=== PATIENT | male | born 1970 | race American Indian/Alaskan Native ===

== ENCOUNTER 2016-09-11 20:03 | Inpatient (IN) | payer OTHER ==
[2016-09-11 22:09] LABS: Basophils % (Auto) 1.3 % (0.0-1.8); Hematocrit 28.3 % (35.5-45.6); Hemoglobin 9.8 gm/dl (11.8-15.2); Mean Corpuscular HGB Conc 35 % (32-34); Mean Corpuscular Hemoglobin 28 pg (28-32); Mean Corpuscular Volume 81 fl (84-94); Platelet Count 195 K/mm3 (140-440); Red Blood Count 3.51 M/mm3 (3.65-5.03); Red Cell Distribution Width 12.7 % (13.2-15.2); White Blood Count 6.5 K/mm3 (4.5-11.0)
[2016-09-11 22:20] LABS: INR 1.09 (0.87-1.13)
[2016-09-11 22:21] LABS: Partial Thromboplastin Time 32.3 Sec. (24.2-36.6)
[2016-09-11 22:26] LABS: BUN/Creatinine Ratio 8.33; Calcium 9.3 mg/dL (8.4-10.2); Chloride 100.6 mmol/L (98-107); Potassium 4.5 mmol/L (3.6-5.0)
--- NOTE | 2016-09-12 06:26 | Emergency Department Report ---
ED General Adult HPI - General Chief complaint: Medical Clearance Stated complaint: SICK/DIALYSIS Time Seen by Provider: 09/12/16 06:25 Source: patient Mode of arrival: Wheelchair Limitations: No Limitations - History of Present Illness Initial comments: Patient states that he moved to this area approximately one week ago without any provisions for dialysis. He has a Vas-Cath and has been dialyzed for one month. Does not have a physician. Complains of some generalized weakness and vomiting times once. He is not complaining of any active dyspnea. He does not complain of any abdominal pain. He also states that he is out of his blood pressure medicine. -: week(s) Consistency: intermittent Improves with: none, immobilization Associated Symptoms: denies other symptoms - Related Data Allergies Allergy/AdvReac Type Severity Reaction Status Date / Time No Known Allergies Allergy Unverified 09/11/16 21:31 ED Review of Systems ROS: Stated complaint: SICK/DIALYSIS Other details as noted in HPI Constitutional: weakness Eyes: denies: eye pain, eye discharge, vision change ENT: denies: ear pain, throat pain Respiratory: denies: cough, shortness of breath, wheezing Cardiovascular: denies: chest pain, palpitations Endocrine: no symptoms reported Gastrointestinal: vomiting (once). denies: abdominal pain, nausea, diarrhea Genitourinary: denies: urgency, dysuria Musculoskeletal: denies: back pain, joint swelling, arthralgia Skin: denies: rash, lesions Neurological: denies: headache, weakness, paresthesias Psychiatric: denies: anxiety, depression Hematological/Lymphatic: denies: easy bleeding, easy bruising ED Past Medical Hx - Past Medical History Hx CVA: Yes (L. SIDED WEAKNESS) Hx Renal Disease: Yes - Surgical History Past Surgical History?: No - Social History Smoking Status: Never Smoker Substance Use Type: None ED Physical Exam - General Limitations: No Limitations General appearance: alert, in no apparent distress - Head Head exam: Present: atraumatic, normocephalic - Eye Eye exam: Present: normal appearance. Absent: scleral icterus - ENT ENT exam: Present: normal exam, mucous membranes moist - Neck Neck exam: Present: normal inspection - Respiratory Respiratory exam: Present: normal lung sounds bilaterally, other (vas cath and chest noted). Absent: respiratory distress - Cardiovascular Cardiovascular Exam: Present: regular rate, normal rhythm. Absent: systolic murmur, diastolic murmur, rubs, gallop - GI/Abdominal GI/Abdominal exam: Present: soft, normal bowel sounds. Absent: distended, tenderness, guarding, rebound, rigid - Rectal Rectal exam: Present: deferred - Extremities Exam Extremities exam: Present: normal inspection - Back Exam Back exam: Present: normal inspection - Neurological Exam Neurological exam: Present: alert, oriented X3, CN II-XII intact, motor sensory deficit (mild left hemiparesis) - Psychiatric Psychiatric exam: Present: normal affect, normal mood - Skin Skin exam: Present: warm, dry, intact, normal color. Absent: rash ED Course Vital Signs 09/11/16 09/12/16 09/12/16 21:26 06:19 06:51 Temperature 98.6 F Pulse Rate 70 Respiratory 20 Rate Blood Pressure 170/117 198/113 Blood Pressure [Left] O2 Sat by Pulse 100 98 Oximetry 09/12/16 07:45 Temperature Pulse Rate 65 Respiratory 16 Rate Blood Pressure Blood Pressure 181/106 [Left] O2 Sat by Pulse 100 Oximetry - Reevaluation(s) Reevaluation #1: Discussed with Dr. Mccurdy. The patient was admitted to the hospital service further care and evaluation. 09/12/16 08:27 ED Medical Decision Making - Lab Data Result diagrams: 09/11/16 21:54 09/11/16 21:53 Laboratory Results - last 24 hr 09/11/16 09/11/16 09/11/16 21:48 21:53 21:54 WBC 6.5 RBC 3.51 L Hgb 9.8 L Hct 28.3 L MCV 81 L MCH 28 MCHC 35 H RDW 12.7 L Plt Count 195 Lymph % (Auto) 31.0 [place] % (Auto) 7.6 H Eos % (Auto) 2.0 Baso % (Auto) 1.3 Lymph # 2.0 [place] # 0.5 Eos # 0.1 Baso # 0.1 Seg Neutrophils % 58.1 Seg Neutrophils # 3.8 PT 14.0 INR 1.09 APTT 32.3 Sodium 139 Potassium 4.5 Chloride 100.6 Carbon Dioxide 24 Anion Gap 19 BUN 60 H Creatinine 7.2 H Estimated GFR 8 BUN/Creatinine Ratio 8.33 Glucose 103 H Calcium 9.3 - EKG Data -: EKG Interpreted by Ma EKG shows normal: sinus rhythm, axis, intervals, QRS complexes, ST-T waves Rate: normal - EKG Data Interpretation: no acute changes - Radiology Data interpreted by me: Chest x-ray shows some venous congestion but no significant decompensation. Critical care attestation.: If time is entered above; I have spent that time in minutes in the direct care of this critically ill patient, excluding procedure time. ED Disposition Clinical Impression: End stage renal disease on dialysis, Uncontrolled hypertension Disposition: OP ADMITTED IP TO THIS HOSP Is pt being admited?: Yes Does the pt Need Aspirin: Yes Condition: Stable Instructions: Hypertension (ED) Referrals: PRIMARY CARE, [Primary Care Provider] - 3-5 Days Time of Disposition: 08:27
[2016-09-12] MEDS ORDERED: NORMODYNE IV ONE (06:27)
--- NOTE | 2016-09-12 07:28 | XRay Report ---
AP CHEST: HISTORY: Hypertension No comparison. There is mild cardiomegaly and borderline pulmonary venous congestion. The lungs are clear. No evidence for pneumonia, CHF or pneumothorax. Dual-lumen right IJ venous catheter terminates in the superior right atrium. The bony thorax is grossly intact. IMPRESSION: Mild cardiomegaly and pulmonary venous congestion but no CHF.
[2016-09-12] MEDS ORDERED: DULCOLAX PR PRN (08:09)
[2016-09-12] MEDS ORDERED: BABY ASPIRIN PO ONE (08:27)
[2016-09-12] MEDS ORDERED: NITRO-BID 2% TP ONE (08:28)
--- NOTE | 2016-09-12 08:49 | Admit Criteria Form ---
Admission Criteria Documentation: HYPERTENSION Clinical Indications for Admission to Inpatient Care ( Place "X" for any and all applicable criteria): Admission is indicated for ANY ONE of the following(1)(2)(3)(4): [ ]I. Hypertensive emergency, with evidence of acute and progressing target organ disease as indicated by ANY ONE of the following: [ ]a) Hypertensive encephalopathy (eg, confusion, altered mental status) [ ]b) Cerebral infarction [ ]c) Intracranial hemorrhage [ ]d) Myocardial ischemia or infarction [ ]e) Pulmonary edema [ ]f) Aortic dissection [ ]g) Seizure [ ]h) Acute renal insufficiency [ ]i) Papilledema [ ]j) Microangiopathic hemolytic anemia [ ]II. Adrenergic crisis (eg, severe hypertension due to pheochromocytoma crisis, cocaine or amphetamine intoxication, or clonidine withdrawal) [X ]III. Severe hypertension (SBP greater than 180 mmHg or DBP greater than 110 mmHg or greater than the 95th percentile for age, gender, and height in pediatric patients) that cannot be controlled (eg, to SBP less than 160 mmHg and DBP less than 100 mmHg in adults) by treatment with oral medication in emergency department or observation care Extended stay beyond goal length of stay may be needed for(11)(12)(13): [ ]a) Persistent hypertensive encephalopathy [ ]b) Continuation of pulmonary edema [ ]c) Recurring or persistent severe hypertension [ ]d) Target organ damage (eg, angina, stroke, aortic dissection) [ ]e) Associated renal insufficiency The original [employer] content created by [employer] has been revised. The portions of the content which have been revised are identified through the use of italic text or in bold, and [facility] has neither reviewed nor approved the modified material. All other unmodified content is copyright [facility]. Please see references footnoted in the original [facility] edition 2016 Admission Criteria Met: Yes
[2016-09-12] MEDS ORDERED: BABY ASPIRIN ONE (08:54)
[2016-09-12] MEDS: HEPARIN SUB-Q SCH (10:00)
--- NOTE | 2016-09-12 10:47 | Consultation ---
History of Present Illness - Reason for Consult Consult date: 09/12/16 end stage renal disease, accelerated hypertension - History of Present Illness Patient is a 46 year old AAM with history significant for Hypertension, CVA with left hemiplegia and ESRD on hemodialysis for the past 2 months came to ER with missed hemodialysis. He moved to this area approximately one week ago without any arrangement for hemodialysis. Patient was last dialyzed on 09/04/16 at [place]. He has a right sided tunnel dialysis catheter. Patient complains of some generalized weakness and one episode of vomiting. He also states that he is out of his blood pressure medication. Patient denies any CP, SOb, leg swelling, dizziness, abd pain, fever, chills or syncope. Past History Past Medical History: dialysis, ESRD, hypertension Medications and Allergies Allergies Allergy/AdvReac Type Severity Reaction Status Date / Time No Known Allergies Allergy Unverified 09/11/16 21:31 Active Meds: Active Medications Acetaminophen (Tylenol) 650 mg PO Q4H PRN PRN Reason: Pain MILD(1-3)/Fever >100.5/COOL Bisacodyl (Dulcolax) 10 mg ME QDAY PRN PRN Reason: Constipation unrelieved by MOM Heparin Sodium (Porcine) (Heparin) 5,000 unit SUB-Q Q12HR CHANG Hydralazine HCl (Apresoline) 10 mg IV Q4HR PRN PRN Reason: Hypertension Ondansetron HCl (Zofran) 4 mg IV Q8H PRN PRN Reason: Nausea And Vomiting Review of Systems Constitutional: weakness, no weight loss, no weight gain, no fever, no chills, no anorexia Ears, nose, mouth and throat: no epistaxis Cardiovascular: no chest pain, no orthopnea, no edema, no syncope, no lightheadedness, no shortness of breath Respiratory: no cough, no hemoptysis, no shortness of breath Gastrointestinal: nausea, vomiting, no abdominal pain, no diarrhea, no hematemesis, no BRBPR, no melena Genitourinary Male: no dysuria, no hematuria, no incontinence Musculoskeletal: no neck pain, no hot joints Integumentary: no rash, no wounds, no jaundice, no boils Neurological: weakness, aphasia, change in speech, gait dysfunction, motor disturbance, loss of vision, no seizures, no syncope Psychiatric: no disorientation Endocrine: no weight change Hematologic/Lymphatic: no easy bruising, no easy bleeding Exam - Vital Signs Vital signs: Vital Signs Temp Pulse BP Pulse Ox 98.6 F 70 170/117 100 09/11/16 21:26 09/11/16 21:26 09/11/16 21:26 09/11/16 21:26 - General Appearance General appearance: well-developed, well-nourished, appears stated age, other ( no distress, right IJ tunnel catheter) EENT: ATNC, mucous membranes moist, hearing intact, other (left eye white reflex ) Neck: Present: neck supple, trachea midline Respiratory: Clear to Ascultation Heart: regular, S1S2, no murmurs Gastrointestinal: Present: normoactive bowel sounds. Absent: tenderness, distended Integumentary: no rash, warm and dry Neurologic: no asterixis, aphasic, hemiplegic Musculoskeletal: Present: other (no edema) Psychiatric: cooperative Results - Lab Results 09/11/16 21:54 09/11/16 21:53 Most recent lab results Calcium 9.3 mg/dL (8.4-10.2) 09/11/16 21:53 Assessment and Plan - Patient Problems (1) End stage renal disease on dialysis Current Visit: Yes Status: Chronic Plan to address problem: Patient was last dialyzed 6 days ago. Hemodialysis ordered for today. Await outpatient hemodialysis setup. (2) Uncontrolled hypertension Current Visit: Yes Status: Chronic Plan to address problem: Start on Losartan. Monitor BP. (3) Anemia associated with chronic renal failure Current Visit: Yes Status: Chronic Plan to address problem: Epogen. (4) CVA, old, hemiparesis Current Visit: Yes Status: Chronic
[2016-09-12] MEDS ORDERED: NACL 0.9% 100 ML IV PRN (11:07)
[2016-09-12] MEDS ORDERED: PROCRIT SUB-Q ONE (13:00)
--- NOTE | 2016-09-12 13:18 | History and Physical Report ---
History of Present Illness Date of examination: 09/12/16 Date of admission: 09/12/16 08:09 Chief complaint: ESRD History of present illness: Patient is a 46 year old MALE with Hx of Hypertension, CVA with left hemiplegia and ESRD on hemodialysis for the past 2 months came to ER recently moved from [facility] to be closure to family and has not been able to establish with a dialysis clinic. He presents with complaints of generalized weakness, nausea, and one episode of vomiting. He denies any chest pain, shortness of breath, and no dizziness. He has a right sided tunnel catheter for dialysis. He reports he is ambulates mainly with wheelchair but sometimes with a cane. In the ER he was noted to have Elevated BP, patient reports that he has not been able to get his medications. ROS Constitutional: No fever, fatigue or weight loss. Skin: No rash. Eyes: No recent vision problems or eye pain. ENT: No congestion, ear pain, or sore throat. Endocrine: No thyroid problems. Cardiovascular: No chest pain. Respiratory: No cough, shortness of breath, congestion, or wheezing. Gastrointestinal: No abdominal pain, nausea, vomiting, or diarrhea. Genitourinary: No dysuria. Musculoskeletal: No joint swelling. Neurologic: left sided weakness. No seizures. Hematologic: No unusual bruising or bleeding. Psychiatric: No psychiatric problems, hallucinations or depression. All other systems reviewed and otherwise negative. Past History Past Medical History: dialysis, ESRD, hypertension Past Surgical History: Other (vas-cath) Social history: lives with family, smoking, full code Family history: no significant family history Medications and Allergies Allergies Allergy/AdvReac Type Severity Reaction Status Date / Time No Known Allergies Allergy Unverified 09/11/16 21:31 Active Meds: Active Medications Acetaminophen (Tylenol) 650 mg PO Q4H PRN PRN Reason: Pain MILD(1-3)/Fever >100.5/COOL Bisacodyl (Dulcolax) 10 mg ID QDAY PRN PRN Reason: Constipation unrelieved by MOM Heparin Sodium (Porcine) (Heparin) 5,000 unit SUB-Q Q12HR CHANG Last Admin: 09/12/16 10:00 Dose: 5,000 unit Hydralazine HCl (Apresoline) 10 mg IV Q4HR PRN PRN Reason: Hypertension Sodium Chloride (Nacl 0.9%) 100 mls @ 999 mls/hr IV LIANA PRN PRN Reason: Hypotension Ondansetron HCl (Zofran) 4 mg IV Q8H PRN PRN Reason: Nausea And Vomiting Exam - Physical Exam Narrative exam: VITAL SIGNS: Reviewed. GENERAL: The patient appeared well nourished and normally developed. Vital signs as documented. HEAD: No signs of head trauma. EYES: Pupils are equal. Extraocular motions intact. EARS: Hearing grossly intact. MOUTH: Oropharynx is normal. NECK: No adenopathy, no JVD. CHEST: Chest with clear breath sounds bilaterally. No wheezes, rales, or rhonchi. CARDIAC: Regular rate and rhythm. S1 and S2, without murmurs, gallops, or rubs. VASCULAR: No Edema. Peripheral pulses normal and equal in all extremities. ABDOMEN: Soft, without detectable tenderness. No sign of distention. No rebound or guarding, and no masses palpated. Bowel Sounds normal. MUSCULOSKELETAL: Good range of motion of all major joints. Extremities without clubbing, cyanosis or edema. NEUROLOGIC EXAM: Alert and oriented x 3. 5/5 right upper ext, 3/5 left upper ext. Speech normal. Follows commands. PSYCHIATRIC: Mood normal. SKIN: right chest area vas-cath, no erythema. - Constitutional Vitals: Temp Pulse Resp BP Pulse Ox 98.6 F 65 16 174/104 100 09/11/16 21:26 09/12/16 07:45 09/12/16 07:45 09/12/16 08:41 09/12/16 08:41 Results - Labs CBC & Chem 7: 09/11/16 21:54 09/11/16 21:53 Labs: Laboratory Last Values WBC 6.5 K/mm3 (4.5-11.0) 09/11/16 21:54 RBC 3.51 M/mm3 (3.65-5.03) L 09/11/16 21:54 Hgb 9.8 gm/dl (11.8-15.2) L 09/11/16 21:54 Hct 28.3 % (35.5-45.6) L 09/11/16 21:54 MCV 81 fl (84-94) L 09/11/16 21:54 MCH 28 pg (28-32) 09/11/16 21:54 MCHC 35 % (32-34) H 09/11/16 21:54 RDW 12.7 % (13.2-15.2) L 09/11/16 21:54 Plt Count 195 K/mm3 (140-440) 09/11/16 21:54 Lymph % (Auto) 31.0 % (13.4-35.0) 09/11/16 21:54 [place] % (Auto) 7.6 % (0.0-7.3) H 09/11/16 21:54 Eos % (Auto) 2.0 % (0.0-4.3) 09/11/16 21:54 Baso % (Auto) 1.3 % (0.0-1.8) 09/11/16 21:54 Lymph # 2.0 K/mm3 (1.2-5.4) 09/11/16 21:54 [place] # 0.5 K/mm3 (0.0-0.8) 09/11/16 21:54 Eos # 0.1 K/mm3 (0.0-0.4) 09/11/16 21:54 Baso # 0.1 K/mm3 (0.0-0.1) 09/11/16 21:54 Seg Neutrophils % 58.1 % (40.0-70.0) 09/11/16 21:54 Seg Neutrophils # 3.8 K/mm3 (1.8-7.7) 09/11/16 21:54 PT 14.0 Sec. (12.2-14.9) 09/11/16 21:48 INR 1.09 (0.87-1.13) 09/11/16 21:48 APTT 32.3 Sec. (24.2-36.6) 09/11/16 21:48 Sodium 139 mmol/L (137-145) 09/11/16 21:53 Potassium 4.5 mmol/L (3.6-5.0) 09/11/16 21:53 Chloride 100.6 mmol/L (98-107) 09/11/16 21:53 Carbon Dioxide 24 mmol/L (22-30) 09/11/16 21:53 Anion Gap 19 mmol/L 09/11/16 21:53 BUN 60 mg/dL (9-20) H 09/11/16 21:53 Creatinine 7.2 mg/dL (0.8-1.5) H 09/11/16 21:53 Estimated GFR 8 ml/min 09/11/16 21:53 BUN/Creatinine Ratio 8.33 % 09/11/16 21:53 Glucose 103 mg/dL (75-100) H 09/11/16 21:53 Calcium 9.3 mg/dL (8.4-10.2) 09/11/16 21:53 Albumin 3.9 g/dL (3.9-5) 09/12/16 08:45 - Imaging and Cardiology Chest x-ray: image reviewed (pulmonary vascular congestion.) Assessment and Plan Assessment and plan: Patient is a 46 year old MALE with Hx of Hypertension, CVA with left hemiplegia and ESRD on hemodialysis for the past 2 months came to ER recently moved from [facility] to be closure to family and has not been able to establish with a dialysis clinic. He presents with complaints of generalized weakness, nausea, and one episode of vomiting. He denies any chest pain, shortness of breath, and no dizziness. He has a right sided tunnel catheter for dialysis. He reports he is ambulates mainly with wheelchair but sometimes with a cane. In the ER he was noted to have Elevated BP, patient reports that he has not been able to get his medications. * ESRD * LEFT HEMIPLEGIA * Hypertensive Urgency * Anemia of chronic renal disease * CVA-OLD PLAN: * Admit to med-surg floor * Nephrology consult * Start on losartan, Nifidepine * Obtain Home med recs * Obtain consultation from Case management for safe discharge * PT.OT EVAL AND TREAT * DVT/GI PROPHY * PLAN OF CARE DISCUSSED IN DETAIL WITH PATIENT AND FAMILY Advance Directives: Yes Plan of care discussed with patient/family: Yes
[2016-09-12] MEDS ORDERED: CATAPRES PO SCH (14:00)
[2016-09-12] MEDS ORDERED: NACL 0.9 (PRIMING MACHINE ONLY DIALYSIS) MC ONE (15:54)
[2016-09-12] MEDS: APRESOLINE IV PRN (16:03)
[2016-09-12] MEDS: HEPARIN IV PRN (17:00)
[2016-09-12] MEDS: COZAAR PO SCH (20:29)
[2016-09-12] MEDS: NORVASC PO SCH (20:30)
[2016-09-13] MEDS: HEPARIN SUB-Q SCH ×3 (00:37→21:55)
[2016-09-13] MEDS: APRESOLINE IV PRN ×3 (01:13→21:14)
[2016-09-13 06:31] LABS: Basophils % (Auto) 1.4 % (0.0-1.8); Eosinophils % (Auto) 2.7 % (0.0-4.3); Hematocrit 29.6 % (35.5-45.6); Hemoglobin 10.4 gm/dl (11.8-15.2); Mean Corpuscular HGB Conc 35 % (32-34); Mean Corpuscular Hemoglobin 28 pg (28-32); Mean Corpuscular Volume 80 fl (84-94); Platelet Count 183 K/mm3 (140-440); Red Blood Count 3.69 M/mm3 (3.65-5.03); Red Cell Distribution Width 12.8 % (13.2-15.2); White Blood Count 5.3 K/mm3 (4.5-11.0)
[2016-09-13 07:29] LABS: BUN/Creatinine Ratio 6.2; Calcium 9.5 mg/dL (8.4-10.2); Chloride 100.8 mmol/L (98-107)
[2016-09-13] MEDS ORDERED: NORVASC PO SCH (10:42)
--- NOTE | 2016-09-13 10:43 | Progress Note ---
Assessment and Plan Assessment and plan: ESRD. Continue hemodialysis per nephrology. Case management to arrange for outpatient hemodialysis. hx CVA with left hemiplegia. Continue PT/OT. Supportive care. Accelerated hypertension. Continue antihypertensive medications. Increase losartan and Norvasc doses. Anemia of chronic kidney disease. Continue to follow H&H and transfuse as needed. DVT prophylaxis. Continue Lovenox. History Interval history: No new issues overnight. Hospitalist Physical - Constitutional Vitals: Temp Pulse Resp BP Pulse Ox 99.1 F 90 18 186/111 100 09/13/16 08:00 09/13/16 08:00 09/13/16 08:00 09/13/16 08:01 09/13/16 08:00 General appearance: Present: no acute distress, well-nourished - EENT Eyes: Present: PERRL, EOM intact ENT: hearing intact, clear oral mucosa, dentition normal - Neck Neck: Present: supple, normal ROM - Respiratory Respiratory effort: normal Respiratory: bilateral: CTA - Cardiovascular Rhythm: regular Heart Sounds: Present: S1 & S2. Absent: gallop, rub - Extremities Extremities: no ischemia, No edema, Full ROM - Abdominal General gastrointestinal: soft, non-tender, non-distended, normal bowel sounds - Integumentary Integumentary: Present: clear, warm, dry - Neurologic Neurologic: CNII-XII intact, moves all extremities Results - Labs CBC & Chem 7: 09/13/16 05:26 09/13/16 05:26 Labs: Laboratory Last Values WBC 5.3 K/mm3 (4.5-11.0) 09/13/16 05:26 RBC 3.69 M/mm3 (3.65-5.03) 09/13/16 05:26 Hgb 10.4 gm/dl (11.8-15.2) L 09/13/16 05:26 Hct 29.6 % (35.5-45.6) L 09/13/16 05:26 MCV 80 fl (84-94) L 09/13/16 05:26 MCH 28 pg (28-32) 09/13/16 05:26 MCHC 35 % (32-34) H 09/13/16 05:26 RDW 12.8 % (13.2-15.2) L 09/13/16 05:26 Plt Count 183 K/mm3 (140-440) 09/13/16 05:26 Lymph % (Auto) 34.2 % (13.4-35.0) 09/13/16 05:26 [place] % (Auto) 11.1 % (0.0-7.3) H 09/13/16 05:26 Eos % (Auto) 2.7 % (0.0-4.3) 09/13/16 05:26 Baso % (Auto) 1.4 % (0.0-1.8) 09/13/16 05:26 Lymph # 1.8 K/mm3 (1.2-5.4) 09/13/16 05:26 [place] # 0.6 K/mm3 (0.0-0.8) 09/13/16 05:26 Eos # 0.1 K/mm3 (0.0-0.4) 09/13/16 05:26 Baso # 0.1 K/mm3 (0.0-0.1) 09/13/16 05:26 Seg Neutrophils % 50.6 % (40.0-70.0) 09/13/16 05:26 Seg Neutrophils # 2.7 K/mm3 (1.8-7.7) 09/13/16 05:26 PT 14.0 Sec. (12.2-14.9) 09/11/16 21:48 INR 1.09 (0.87-1.13) 09/11/16 21:48 APTT 32.3 Sec. (24.2-36.6) 09/11/16 21:48 Sodium 142 mmol/L (137-145) 09/13/16 05:26 Potassium 4.0 mmol/L (3.6-5.0) 09/13/16 05:26 Chloride 100.8 mmol/L (98-107) 09/13/16 05:26 Carbon Dioxide 25 mmol/L (22-30) 09/13/16 05:26 Anion Gap 20 mmol/L 09/13/16 05:26 BUN 31 mg/dL (9-20) H 09/13/16 05:26 Creatinine 5.0 mg/dL (0.8-1.5) H 09/13/16 05:26 Estimated GFR 15 ml/min 09/13/16 05:26 BUN/Creatinine Ratio 6.20 % 09/13/16 05:26 Glucose 95 mg/dL (75-100) 09/13/16 05:26 Calcium 9.5 mg/dL (8.4-10.2) 09/13/16 05:26 Albumin 3.9 g/dL (3.9-5) 09/12/16 08:45 Hepatitis A IgM Ab Non-reactive (NonReactive) 09/12/16 08:45 Hep Bs Antigen Non-reactive (Negative) 09/12/16 08:45 Hep B Core IgM Ab Non-reactive (NonReactive) 09/12/16 08:45 Hepatitis C Antibody Non-reactive (NonReactive) 09/12/16 08:45
--- NOTE | 2016-09-13 10:59 | Progress Note ---
Assessment and Plan - Patient Problems (1) End stage renal disease on dialysis Current Visit: Yes Status: Chronic Plan to address problem: Patient was admitted after he missed hemodialysis for 6 days ago. Hemodialysis was dialyzed yesterday in the hospital. Vascular consulted for placement of AVF / AVG. Plan to do hemodialysis tomorrow. Await outpatient hemodialysis setup. (2) Uncontrolled hypertension Current Visit: Yes Status: Chronic Plan to address problem: On Losartan. Started on Metoprolol. Monitor BP. (3) Anemia associated with chronic renal failure Current Visit: Yes Status: Chronic Plan to address problem: Epogen. (4) CVA, old, hemiparesis Current Visit: Yes Status: Chronic Subjective Date of service: 09/13/16 Interval history: Patient is doing ok. Objective - Vital Signs Vital signs: Vital Signs - 12hr 09/13/16 09/13/16 09/13/16 00:30 01:13 08:00 Temperature 99.6 F 99.1 F Pulse Rate 84 Pulse Rate [ 78 90 Right Radial] Respiratory 16 18 Rate Blood Pressure 172/103 Blood Pressure 172/103 186/111 [Right Arm] O2 Sat by Pulse 99 100 Oximetry 09/13/16 08:01 Temperature Pulse Rate Pulse Rate [ Right Radial] Respiratory Rate Blood Pressure 186/111 Blood Pressure [Right Arm] O2 Sat by Pulse Oximetry - General Appearance General appearance: well-developed, well-nourished, appears stated age, other ( no distress, right IJ tunnel catheter) EENT: ATNC, mucous membranes moist, hearing intact, other (left eye white reflex ) Neck: supple Respiratory: Present: Clear to Ascultation Cardiology: regular, S1S2, no murmurs Gastrointestinal: normoactive bowel sounds, no tenderness, no distended Integumentary: no rash Neurologic: no asterixis, hemiplegic (left side), aphasia, other (left eye blindness) Musculoskeletal: other (no edema) Psychiatric: mood/affect appropriate, cooperative - Lab 09/13/16 05:26 09/13/16 05:26 Most recent lab results Calcium 9.5 mg/dL (8.4-10.2) 09/13/16 05:26
[2016-09-13] MEDS: TYLENOL PO PRN (11:32)
[2016-09-13] MEDS: LOPRESSOR PO SCH ×2 (13:08→21:55)
[2016-09-13] MEDS: NORVASC PO SCH ×2 (13:08→14:20)
[2016-09-13] MEDS: COZAAR PO SCH (14:20)
--- NOTE | 2016-09-13 14:27 | Consultation ---
History of Present Illness - Reason for Consult Consult date: 09/13/16 Evaluation for Long-Term Hemodialysis Access - History of Present Illness This patient is a 46-year-old -Irish male that is admitted via the emergency room on 09/12/2016 with end-stage renal disease on hemodialysis. The patient recently moved from [place] to [place] to be closer to his family. He has been unable to establish an outpatient hemodialysis clinic. He's presently using a right internal jugular vein permacath for hemodialysis. This was placed while in [place], [place]. A vascular surgery consult is requested to evaluate for long-term hemodialysis access. He is right-hand dominant. He's had a previous stroke which resulted in left sided weakness. He is unable to use his left arm. Past History Past Medical History: dialysis, ESRD, hypertension, stroke (with residual left- sided weakness) Past Surgical History: Other (right internal jugular vein permacath) Social history: lives with family (his son. He recently moved from [facility] to [facility]), smoking, full code Family history: no significant family history Medications and Allergies Allergies Allergy/AdvReac Type Severity Reaction Status Date / Time No Known Allergies Allergy Unverified 09/11/16 21:31 Active Meds: Active Medications Acetaminophen (Tylenol) 650 mg PO Q4H PRN PRN Reason: Pain MILD(1-3)/Fever >100.5/COOL Last Admin: 09/13/16 11:32 Dose: 650 mg Amlodipine Besylate (Norvasc) 10 mg PO DAILY [facility] Last Admin: 09/13/16 13:08 Dose: 10 mg Bisacodyl (Dulcolax) 10 mg CO QDAY PRN PRN Reason: Constipation unrelieved by MOM Heparin Sodium (Porcine) (Heparin) 5,000 unit SUB-Q Q12HR CHANG Last Admin: 09/13/16 11:32 Dose: 5,000 unit Heparin Sodium (Porcine) (Heparin) 5,000 unit IV LIANA PRN PRN Reason: hemodialysis Last Admin: 09/12/16 17:00 Dose: 5,000 unit Hydralazine HCl (Apresoline) 10 mg IV Q4HR PRN PRN Reason: Hypertension Last Admin: 09/13/16 08:01 Dose: 10 mg Sodium Chloride (Nacl 0.9%) 100 mls @ 999 mls/hr IV LIANA PRN PRN Reason: Hypotension Losartan Potassium (Cozaar) 100 mg PO QDAY [facility] Metoprolol Tartrate (Lopressor) 50 mg PO BID [facility] Last Admin: 09/13/16 13:08 Dose: 50 mg Ondansetron HCl (Zofran) 4 mg IV Q8H PRN PRN Reason: Nausea And Vomiting Review of Systems All systems: negative Exam - Constitutional Vitals: Temp Pulse Resp BP Pulse Ox 99.1 F 90 18 168/98 100 09/13/16 08:00 09/13/16 08:00 09/13/16 12:32 09/13/16 13:08 09/13/16 08:00 General appearance: Present: no acute distress - EENT Eyes: Present: EOM intact ENT: hearing intact - Neck Neck: Present: supple (right internal jugular vein permacath) - Respiratory Respiratory effort: normal - Extremities Extremities: no ischemia, pulses intact (bilateral radial and dorsalis pedis pulses intact) - Abdominal General gastrointestinal: Present: soft - Musculoskeletal Musculoskeletal: left sided weakness - Psychiatric Psychiatric: no appropriate mood/affect (somewhat of a flat affect), intact judgment & insight, cooperative - Neurologic Neurologic: focal deficits (residual left sided weakness from a stroke approximately one year ago) Results - Labs CBC & Chem 7: 09/13/16 05:26 09/13/16 05:26 Labs: Abnormal lab results 09/13/16 09/13/16 Range/Units 05:26 05:26 Hgb 10.4 L (11.8-15.2) gm/dl Hct 29.6 L (35.5-45.6) % MCV 80 L (84-94) fl MCHC 35 H (32-34) % RDW 12.8 L (13.2-15.2) % [place] % (Auto) 11.1 H (0.0-7.3) % BUN 31 H (9-20) mg/dL Creatinine 5.0 H (0.8-1.5) mg/dL Assessment and Plan This patient is on hemodialysis through a right internal jugular vein permacath. A vascular surgery consult has been requested to evaluate for long- term hemodialysis access. We will check a vein mapping of his upper extremities to evaluate the size of his venous vasculature in preparation for AV fistula creation. He is unable to use his left upper extremity therefore would preferentially use this side for hemodialysis access (as he can use his right upper extremity to control any hemorrhage). The risks benefits and alternatives to long-term hemodialysis access creation were discussed in great detail. He states understanding and agrees to proceed. We will review the vein mapping and check the operating room schedule. If we can arrange for AV fistula creation prior to discharge we will otherwise this can be arranged as an outpatient. Patient states understanding and has agreed to proceed. - Patient Problems (1) End stage renal disease on dialysis Current Visit: Yes Status: Chronic (2) CVA, old, hemiparesis Current Visit: Yes Status: Chronic (3) Uncontrolled hypertension Current Visit: Yes Status: Chronic (4) Anemia associated with chronic renal failure Current Visit: Yes Status: Chronic
[2016-09-13] MEDS: ZOFRAN IV PRN (22:34)
[2016-09-14] MEDS: APRESOLINE IV PRN ×3 (05:46→21:29)
[2016-09-14 06:46] LABS: Basophils % (Auto) 1.1 % (0.0-1.8); Eosinophils % (Auto) 0.8 % (0.0-4.3); Hematocrit 34.1 % (35.5-45.6); Hemoglobin 11.7 gm/dl (11.8-15.2); Mean Corpuscular HGB Conc 34 % (32-34); Mean Corpuscular Hemoglobin 28 pg (28-32); Mean Corpuscular Volume 81 fl (84-94); Platelet Count 226 K/mm3 (140-440); Red Blood Count 4.23 M/mm3 (3.65-5.03); Red Cell Distribution Width 13.1 % (13.2-15.2); White Blood Count 8.5 K/mm3 (4.5-11.0)
[2016-09-14 07:05] LABS: Chloride 99.7 mmol/L (98-107)
[2016-09-14 07:06] LABS: BUN/Creatinine Ratio 5.27
[2016-09-14] MEDS ORDERED: NACL 0.9% 100 ML IV PRN (09:37)
[2016-09-14] MEDS: COZAAR PO SCH (10:00)
[2016-09-14] MEDS: HEPARIN SUB-Q SCH ×2 (10:00→21:15)
[2016-09-14] MEDS: NORVASC PO SCH (10:00)
[2016-09-14] MEDS: LOPRESSOR PO SCH ×2 (10:00→21:23)
[2016-09-14] MEDS ORDERED: NACL 0.9 (PRIMING MACHINE ONLY DIALYSIS) MC ONE (10:46)
--- NOTE | 2016-09-14 11:21 | Progress Note ---
Assessment and Plan Assessment and plan: ESRD. Continue hemodialysis per nephrology. Case management to arrange for outpatient hemodialysis. hx CVA with left hemiplegia. Continue PT/OT. Supportive care. Accelerated hypertension. Continue antihypertensive medications. Continue losartan and Norvasc. Anemia of chronic kidney disease. Continue to follow H&H and transfuse as needed. DVT prophylaxis. Continue Lovenox. History Interval history: No new issues overnight. Hospitalist Physical - Constitutional Vitals: Temp Pulse Resp BP Pulse Ox 99.1 F 123 H 18 188/98 97 09/14/16 10:00 09/14/16 11:15 09/14/16 10:00 09/14/16 11:15 09/14/16 08:00 General appearance: Present: no acute distress - EENT Eyes: Present: PERRL, EOM intact ENT: hearing intact, clear oral mucosa, dentition normal - Neck Neck: Present: supple, normal ROM - Respiratory Respiratory effort: normal Respiratory: bilateral: CTA - Cardiovascular Rhythm: regular Heart Sounds: Present: S1 & S2. Absent: gallop, rub - Extremities Extremities: no ischemia, No edema, Full ROM - Abdominal General gastrointestinal: soft, non-tender, non-distended, normal bowel sounds - Integumentary Integumentary: Present: clear, warm, dry - Neurologic Neurologic: CNII-XII intact, moves all extremities Results - Labs CBC & Chem 7: 09/14/16 06:12 09/14/16 06:12 Labs: Laboratory Last Values WBC 8.5 K/mm3 (4.5-11.0) 09/14/16 06:12 RBC 4.23 M/mm3 (3.65-5.03) 09/14/16 06:12 Hgb 11.7 gm/dl (11.8-15.2) L 09/14/16 06:12 Hct 34.1 % (35.5-45.6) L 09/14/16 06:12 MCV 81 fl (84-94) L 09/14/16 06:12 MCH 28 pg (28-32) 09/14/16 06:12 MCHC 34 % (32-34) 09/14/16 06:12 RDW 13.1 % (13.2-15.2) L 09/14/16 06:12 Plt Count 226 K/mm3 (140-440) 09/14/16 06:12 Lymph % (Auto) 27.6 % (13.4-35.0) 09/14/16 06:12 [place] % (Auto) 12.2 % (0.0-7.3) H 09/14/16 06:12 Eos % (Auto) 0.8 % (0.0-4.3) 09/14/16 06:12 Baso % (Auto) 1.1 % (0.0-1.8) 09/14/16 06:12 Lymph # 2.3 K/mm3 (1.2-5.4) 09/14/16 06:12 [place] # 1.0 K/mm3 (0.0-0.8) H 09/14/16 06:12 Eos # 0.1 K/mm3 (0.0-0.4) 09/14/16 06:12 Baso # 0.1 K/mm3 (0.0-0.1) 09/14/16 06:12 Seg Neutrophils % 58.3 % (40.0-70.0) 09/14/16 06:12 Seg Neutrophils # 5.0 K/mm3 (1.8-7.7) 09/14/16 06:12 PT 14.0 Sec. (12.2-14.9) 09/11/16 21:48 INR 1.09 (0.87-1.13) 09/11/16 21:48 APTT 32.3 Sec. (24.2-36.6) 09/11/16 21:48 Sodium 144 mmol/L (137-145) 09/14/16 06:12 Potassium 4.0 mmol/L (3.6-5.0) 09/14/16 06:12 Chloride 99.7 mmol/L (98-107) 09/14/16 06:12 Carbon Dioxide 27 mmol/L (22-30) 09/14/16 06:12 Anion Gap 21 mmol/L 09/14/16 06:12 BUN 38 mg/dL (9-20) H 09/14/16 06:12 Creatinine 7.2 mg/dL (0.8-1.5) H 09/14/16 06:12 Estimated GFR 10 ml/min 09/14/16 06:12 BUN/Creatinine Ratio 5.27 % 09/14/16 06:12 Glucose 107 mg/dL (75-100) H 09/14/16 06:12 Calcium 10.0 mg/dL (8.4-10.2) 09/14/16 06:12 Albumin 3.9 g/dL (3.9-5) 09/12/16 08:45 Hepatitis A IgM Ab Non-reactive (NonReactive) 09/12/16 08:45 Hep Bs Antigen Non-reactive (Negative) 09/12/16 08:45 Hep B Core IgM Ab Non-reactive (NonReactive) 09/12/16 08:45 Hepatitis C Antibody Non-reactive (NonReactive) 09/12/16 08:45
[2016-09-14] MEDS: ZOFRAN IV PRN ×2 (11:31→21:15)
--- NOTE | 2016-09-14 12:59 | Progress Note ---
Assessment and Plan - Patient Problems (1) End stage renal disease on dialysis Current Visit: Yes Status: Chronic Plan to address problem: Continue hemodialysis three times a week. Vascular consulted for placement of AVF / AVG. Await outpatient hemodialysis setup. (2) Uncontrolled hypertension Current Visit: Yes Status: Chronic Plan to address problem: On Amlodipine, Losartan and Metoprolol. Monitor BP. (3) Anemia associated with chronic renal failure Current Visit: Yes Status: Chronic Plan to address problem: Epogen. (4) CVA, old, hemiparesis Current Visit: Yes Status: Chronic Subjective Date of service: 09/14/16 Interval history: Patient was seen and examined while on hemodialysis. Had an episode of vomiting. Objective - Vital Signs Vital signs: Vital Signs - 12hr 09/14/16 09/14/16 09/14/16 05:44 08:00 10:00 Temperature 99.2 F 99 F 99.1 F Pulse Rate 117 H Pulse Rate [ 97 H 98 H Right Radial] Respiratory 18 18 18 Rate Blood Pressure 189/104 Blood Pressure 180/109 176/100 [Right Arm] O2 Sat by Pulse 100 97 Oximetry 09/14/16 09/14/16 09/14/16 10:15 10:30 10:45 Temperature Pulse Rate 107 H 113 H 121 H Pulse Rate [ Right Radial] Respiratory Rate Blood Pressure 186/106 170/103 175/105 Blood Pressure [Right Arm] O2 Sat by Pulse Oximetry 09/14/16 09/14/16 09/14/16 11:00 11:13 11:15 Temperature Pulse Rate 120 H 120 H 123 H Pulse Rate [ Right Radial] Respiratory Rate Blood Pressure 185/109 185/109 188/98 Blood Pressure [Right Arm] O2 Sat by Pulse Oximetry 09/14/16 09/14/16 09/14/16 11:30 11:45 12:00 Temperature Pulse Rate 120 H 128 H 125 H Pulse Rate [ Right Radial] Respiratory Rate Blood Pressure 150/81 154/85 141/80 Blood Pressure [Right Arm] O2 Sat by Pulse Oximetry 09/14/16 09/14/16 12:15 12:30 Temperature Pulse Rate 123 H 123 H Pulse Rate [ Right Radial] Respiratory Rate Blood Pressure 130/70 121/73 Blood Pressure [Right Arm] O2 Sat by Pulse Oximetry - General Appearance General appearance: well-developed, well-nourished, appears stated age, other ( no distress, right IJ tunnel catheter) EENT: ATNC Neck: supple Respiratory: Present: Clear to Ascultation Cardiology: regular, S1S2, no murmurs Gastrointestinal: normoactive bowel sounds, no tenderness, no distended Neurologic: no asterixis, other (left eye blind, left hemiparesis, motor aphasia ) Musculoskeletal: other (no edema) Psychiatric: mood/affect appropriate, cooperative - Lab 09/14/16 06:12 09/14/16 06:12 Most recent lab results Calcium 10.0 mg/dL (8.4-10.2) 09/14/16 06:12
[2016-09-14] MEDS: HEPARIN IV PRN (13:16)
[2016-09-15] MEDS: APRESOLINE IV PRN (05:39)
[2016-09-15 06:09] LABS: Basophils % (Auto) 1.2 % (0.0-1.8); Eosinophils % (Auto) 0.5 % (0.0-4.3); Hematocrit 34.8 % (35.5-45.6); Mean Corpuscular HGB Conc 35 % (32-34); Mean Corpuscular Hemoglobin 28 pg (28-32); Mean Corpuscular Volume 81 fl (84-94); Platelet Count 220 K/mm3 (140-440); Red Blood Count 4.31 M/mm3 (3.65-5.03); Red Cell Distribution Width 13.2 % (13.2-15.2); White Blood Count 9.6 K/mm3 (4.5-11.0)
[2016-09-15 06:27] LABS: BUN/Creatinine Ratio 4.77; Potassium 3.9 mmol/L (3.6-5.0)
--- NOTE | 2016-09-15 07:50 | Progress Note ---
Assessment and Plan - Patient Problems (1) End stage renal disease on dialysis Current Visit: Yes Status: Chronic Plan to address problem: Continue hemodialysis three times a week. Vascular consulted for placement of AVF / AVG. Await outpatient hemodialysis setup. (2) Uncontrolled hypertension Current Visit: Yes Status: Chronic Plan to address problem: On Amlodipine, Losartan and Metoprolol. Increase Metoprolol to 100 mg BID. Monitor BP. (3) Anemia associated with chronic renal failure Current Visit: Yes Status: Chronic Plan to address problem: Epogen. (4) CVA, old, hemiparesis Current Visit: Yes Status: Chronic Subjective Date of service: 09/15/16 Interval history: Patient was seen and examined at the bedside. No new complaint. Objective - Vital Signs Vital signs: Vital Signs - 12hr 09/14/16 09/14/16 09/14/16 21:23 21:29 22:00 Temperature Pulse Rate 119 H 119 H Pulse Rate [ 119 H Right Radial] Respiratory 18 Rate Blood Pressure 192/117 192/117 Blood Pressure [Right Arm] O2 Sat by Pulse Oximetry 09/15/16 09/15/16 09/15/16 00:30 04:23 05:24 Temperature 100.1 F H 99.9 F H Pulse Rate Pulse Rate [ 101 H 103 H 103 H Right Radial] Respiratory 22 22 Rate Blood Pressure Blood Pressure 164/116 166/111 167/113 [Right Arm] O2 Sat by Pulse 98 99 Oximetry 09/15/16 05:39 Temperature Pulse Rate 103 H Pulse Rate [ Right Radial] Respiratory Rate Blood Pressure 167/113 Blood Pressure [Right Arm] O2 Sat by Pulse Oximetry - General Appearance General appearance: well-developed, appears stated age, other (no distress, right IJ tunnel catheter) EENT: ATNC Neck: supple Respiratory: Present: Clear to Ascultation Cardiology: regular, S1S2, no murmurs Gastrointestinal: normoactive bowel sounds, no tenderness, no distended Integumentary: no rash Neurologic: aphasic, other (left hemiparesis) Musculoskeletal: other (no edema) Psychiatric: cooperative - Lab 09/15/16 05:23 09/15/16 05:23 Most recent lab results Calcium 10.0 mg/dL (8.4-10.2) 09/15/16 05:23
[2016-09-15] MEDS: COZAAR PO SCH (09:07)
[2016-09-15] MEDS: TYLENOL PO PRN (09:07)
[2016-09-15] MEDS: NORVASC PO SCH (09:08)
[2016-09-15] MEDS: HEPARIN SUB-Q SCH ×2 (09:08→22:40)
[2016-09-15] MEDS: LOPRESSOR PO SCH ×2 (09:11→22:40)
--- NOTE | 2016-09-15 10:36 | Progress Note ---
Assessment and Plan Assessment and plan: ESRD. Continue hemodialysis per nephrology. Case management to arrange for outpatient hemodialysis. hx CVA with left hemiplegia. Continue PT/OT. Supportive care. Accelerated hypertension. Continue antihypertensive medications. Continue losartan and Norvasc. Anemia of chronic kidney disease. Continue to follow H&H and transfuse as needed. DVT prophylaxis. Continue Lovenox. History Interval history: No new issues overnight. Hospitalist Physical - Constitutional Vitals: Temp Pulse Resp BP Pulse Ox 100.9 F H 124 H 24 157/110 99 09/15/16 08:14 09/15/16 08:14 09/15/16 08:14 09/15/16 08:14 09/15/16 04:23 General appearance: Present: no acute distress - EENT Eyes: Present: PERRL, EOM intact ENT: hearing intact, clear oral mucosa, dentition normal - Neck Neck: Present: supple, normal ROM - Respiratory Respiratory effort: normal Respiratory: bilateral: CTA - Cardiovascular Rhythm: regular Heart Sounds: Present: S1 & S2. Absent: gallop, rub - Extremities Extremities: no ischemia, No edema, Full ROM - Abdominal General gastrointestinal: soft, non-tender, non-distended, normal bowel sounds - Integumentary Integumentary: Present: clear, warm, dry - Neurologic Neurologic: CNII-XII intact, moves all extremities Results - Labs CBC & Chem 7: 09/15/16 05:23 09/15/16 05:23 Labs: Laboratory Last Values WBC 9.6 K/mm3 (4.5-11.0) 09/15/16 05:23 RBC 4.31 M/mm3 (3.65-5.03) 09/15/16 05:23 Hgb 12.0 gm/dl (11.8-15.2) 09/15/16 05:23 Hct 34.8 % (35.5-45.6) L 09/15/16 05:23 MCV 81 fl (84-94) L 09/15/16 05:23 MCH 28 pg (28-32) 09/15/16 05:23 MCHC 35 % (32-34) H 09/15/16 05:23 RDW 13.2 % (13.2-15.2) 09/15/16 05:23 Plt Count 220 K/mm3 (140-440) 09/15/16 05:23 Lymph % (Auto) 31.4 % (13.4-35.0) 09/15/16 05:23 [place] % (Auto) 12.8 % (0.0-7.3) H 09/15/16 05:23 Eos % (Auto) 0.5 % (0.0-4.3) 09/15/16 05:23 Baso % (Auto) 1.2 % (0.0-1.8) 09/15/16 05:23 Lymph # 3.0 K/mm3 (1.2-5.4) 09/15/16 05:23 [place] # 1.2 K/mm3 (0.0-0.8) H 09/15/16 05:23 Eos # 0.0 K/mm3 (0.0-0.4) 09/15/16 05:23 Baso # 0.1 K/mm3 (0.0-0.1) 09/15/16 05:23 Seg Neutrophils % 54.1 % (40.0-70.0) 09/15/16 05:23 Seg Neutrophils # 5.2 K/mm3 (1.8-7.7) 09/15/16 05:23 PT 14.0 Sec. (12.2-14.9) 09/11/16 21:48 INR 1.09 (0.87-1.13) 09/11/16 21:48 APTT 32.3 Sec. (24.2-36.6) 09/11/16 21:48 Sodium 141 mmol/L (137-145) 09/15/16 05:23 Potassium 3.9 mmol/L (3.6-5.0) 09/15/16 05:23 Chloride 99.0 mmol/L (98-107) 09/15/16 05:23 Carbon Dioxide 24 mmol/L (22-30) 09/15/16 05:23 Anion Gap 22 mmol/L 09/15/16 05:23 BUN 32 mg/dL (9-20) H 09/15/16 05:23 Creatinine 6.7 mg/dL (0.8-1.5) H 09/15/16 05:23 Estimated GFR 11 ml/min 09/15/16 05:23 BUN/Creatinine Ratio 4.77 % 09/15/16 05:23 Glucose 111 mg/dL (75-100) H 09/15/16 05:23 Calcium 10.0 mg/dL (8.4-10.2) 09/15/16 05:23 Albumin 3.9 g/dL (3.9-5) 09/12/16 08:45 Hepatitis A IgM Ab Non-reactive (NonReactive) 09/12/16 08:45 Hep Bs Antigen Non-reactive (Negative) 09/12/16 08:45 Hep B Core IgM Ab Non-reactive (NonReactive) 09/12/16 08:45 Hepatitis C Antibody Non-reactive (NonReactive) 09/12/16 08:45
--- NOTE | 2016-09-15 12:33 | Event Note ---
Date: 09/15/16 The patient had a vein mapping demonstrated he is an adequate candidate for left arm AV fistula. We'll proceed with creation of left arm AV access tomorrow.
--- NOTE | 2016-09-16 07:22 | Vascular Lab Report ---
Upper extremity vein mapping Reason for exam: Preoperative evaluation for hemodialysis access Comments: On the right, the cephalic vein is usable from wrist to shoulder. The basilic vein is in. The brachial and radial arteries are patent. The radial artery is of normal caliber. On the left, the cephalic vein is not usable from wrist to shoulder due to small size. The basilic vein is usable from elbow to shoulder. The brachial and radial arteries are patent. The radial artery is of normal caliber. Impression: right cephalic vein is suitable for use as AV access site. Left cephalic vein is not usable for use as AV access site Both basilic veins are suitable for use as AV access sites. No arterial issues were identified.
--- NOTE | 2016-09-16 07:49 | Progress Note ---
Assessment and Plan - Patient Problems (1) End stage renal disease on dialysis Current Visit: Yes Status: Chronic Plan to address problem: Continue hemodialysis three times a week. Scheduled for placement of AVF / AVG today. Await outpatient hemodialysis setup. (2) Uncontrolled hypertension Current Visit: Yes Status: Chronic Plan to address problem: On full dose of Amlodipine, Losartan and Metoprolol. If needed will start on Clonidine or Cardura. Monitor BP. (3) Anemia associated with chronic renal failure Current Visit: Yes Status: Chronic Plan to address problem: Epogen. (4) CVA, old, hemiparesis Current Visit: Yes Status: Chronic Subjective Date of service: 09/16/16 Interval history: Patient was seen and examined at the bedside. No new complaint. Objective - Vital Signs Vital signs: Vital Signs - 12hr 09/15/16 09/15/16 09/15/16 22:00 22:40 23:20 Temperature 98.9 F Pulse Rate 88 Pulse Rate [ 88 Left Radial] Pulse Rate [ 80 Right Radial] Respiratory 16 18 Rate Blood Pressure 137/91 Blood Pressure 143/95 [Right Arm] O2 Sat by Pulse 97 Oximetry - General Appearance General appearance: well-developed, well-nourished, appears stated age, other ( right IJ tunnel catheter, no distress) EENT: ATNC, mucous membranes moist, hearing intact, vision intact Neck: supple Respiratory: Present: Clear to Ascultation Cardiology: regular, S1S2, no murmurs Gastrointestinal: normoactive bowel sounds, no tenderness, no distended Integumentary: no rash Neurologic: no asterixis, hemiplegic (left sided), aphasia (motor), other (left eye blindness) Musculoskeletal: other (no edema) Psychiatric: mood/affect appropriate, cooperative - Lab 09/15/16 05:23 09/15/16 05:23 Most recent lab results Calcium 10.0 mg/dL (8.4-10.2) 09/15/16 05:23
--- NOTE | 2016-09-16 10:52 | Progress Note ---
Assessment and Plan Assessment and plan: ESRD. Continue hemodialysis per nephrology. Case management to arrange for outpatient hemodialysis. AV access per vascular surgery tomorrow. hx CVA with left hemiplegia. Continue PT/OT. Supportive care. Accelerated hypertension. Continue antihypertensive medications. Continue losartan and Norvasc. Anemia of chronic kidney disease. Continue to follow H&H and transfuse as needed. DVT prophylaxis. Continue Lovenox. History Interval history: No new issues overnight. Hospitalist Physical - Constitutional Vitals: Temp Pulse Resp BP Pulse Ox 99.5 F 80 20 166/104 97 09/16/16 08:05 09/16/16 08:05 09/16/16 08:05 09/16/16 08:05 09/16/16 08:05 General appearance: Present: no acute distress - EENT Eyes: Present: PERRL, EOM intact ENT: hearing intact, clear oral mucosa, dentition normal - Neck Neck: Present: supple, normal ROM - Respiratory Respiratory effort: normal Respiratory: bilateral: CTA - Cardiovascular Rhythm: regular Heart Sounds: Present: S1 & S2. Absent: gallop, rub - Extremities Extremities: no ischemia, No edema, Full ROM - Abdominal General gastrointestinal: soft, non-tender, non-distended, normal bowel sounds - Integumentary Integumentary: Present: clear, warm, dry - Neurologic Neurologic: CNII-XII intact, moves all extremities Results - Labs CBC & Chem 7: 09/15/16 05:23 09/15/16 05:23 Labs: Laboratory Last Values WBC 9.6 K/mm3 (4.5-11.0) 09/15/16 05:23 RBC 4.31 M/mm3 (3.65-5.03) 09/15/16 05:23 Hgb 12.0 gm/dl (11.8-15.2) 09/15/16 05:23 Hct 34.8 % (35.5-45.6) L 09/15/16 05:23 MCV 81 fl (84-94) L 09/15/16 05:23 MCH 28 pg (28-32) 09/15/16 05:23 MCHC 35 % (32-34) H 09/15/16 05:23 RDW 13.2 % (13.2-15.2) 09/15/16 05:23 Plt Count 220 K/mm3 (140-440) 09/15/16 05:23 Lymph % (Auto) 31.4 % (13.4-35.0) 09/15/16 05:23 [place] % (Auto) 12.8 % (0.0-7.3) H 09/15/16 05:23 Eos % (Auto) 0.5 % (0.0-4.3) 09/15/16 05:23 Baso % (Auto) 1.2 % (0.0-1.8) 09/15/16 05:23 Lymph # 3.0 K/mm3 (1.2-5.4) 09/15/16 05:23 [place] # 1.2 K/mm3 (0.0-0.8) H 09/15/16 05:23 Eos # 0.0 K/mm3 (0.0-0.4) 09/15/16 05:23 Baso # 0.1 K/mm3 (0.0-0.1) 09/15/16 05:23 Seg Neutrophils % 54.1 % (40.0-70.0) 09/15/16 05:23 Seg Neutrophils # 5.2 K/mm3 (1.8-7.7) 09/15/16 05:23 PT 14.0 Sec. (12.2-14.9) 09/11/16 21:48 INR 1.09 (0.87-1.13) 09/11/16 21:48 APTT 32.3 Sec. (24.2-36.6) 09/11/16 21:48 Sodium 141 mmol/L (137-145) 09/15/16 05:23 Potassium 3.9 mmol/L (3.6-5.0) 09/15/16 05:23 Chloride 99.0 mmol/L (98-107) 09/15/16 05:23 Carbon Dioxide 24 mmol/L (22-30) 09/15/16 05:23 Anion Gap 22 mmol/L 09/15/16 05:23 BUN 32 mg/dL (9-20) H 09/15/16 05:23 Creatinine 6.7 mg/dL (0.8-1.5) H 09/15/16 05:23 Estimated GFR 11 ml/min 09/15/16 05:23 BUN/Creatinine Ratio 4.77 % 09/15/16 05:23 Glucose 111 mg/dL (75-100) H 09/15/16 05:23 Calcium 10.0 mg/dL (8.4-10.2) 09/15/16 05:23 Albumin 3.9 g/dL (3.9-5) 09/12/16 08:45 Hepatitis A IgM Ab Non-reactive (NonReactive) 09/12/16 08:45 Hep Bs Antigen Non-reactive (Negative) 09/12/16 08:45 Hep B Core IgM Ab Non-reactive (NonReactive) 09/12/16 08:45 Hepatitis C Antibody Non-reactive (NonReactive) 09/12/16 08:45
[2016-09-16] MEDS: LOPRESSOR PO SCH ×2 (11:07→22:20)
[2016-09-16] MEDS: HEPARIN SUB-Q SCH ×2 (11:07→22:22)
[2016-09-16] MEDS: NORVASC PO SCH ×2 (11:07→18:33)
[2016-09-16] MEDS: COZAAR PO SCH ×2 (11:07→18:33)
[2016-09-16] MEDS: APRESOLINE IV PRN ×3 (11:16→16:05)
[2016-09-16] MEDS ORDERED: DIPRIVAN 10 MG/ML IV ONE (12:54)
[2016-09-16] MEDS ORDERED: SUBLIMAZE ONE (12:54)
[2016-09-16] MEDS ORDERED: XYLOCAINE MPF 2% ONE (12:54)
[2016-09-16] MEDS ORDERED: NEO SYNEPHRINE/NS Syringe(OR USE) IV ONE (13:00)
[2016-09-16] MEDS ORDERED: LOPRESSOR IV ONE (13:27)
[2016-09-16] MEDS ORDERED: NACL 0.9% 1000 ML 1,000 ML ONE (13:28)
[2016-09-16] MEDS: NACL 0.9% 1000 ML 1,000 ML IV SCH ×2 (13:35→18:32)
[2016-09-16] MEDS ORDERED: MARCAINE 0.5% INFILTRATI ONE ×2 (13:40→14:33)
[2016-09-16] MEDS ORDERED: HEPARIN 10,000 UNITS/10 ML ONE (13:41)
--- NOTE | 2016-09-16 13:46 | Anesthesia Day of Surgery ---
Anesthesia Day of Surgery - Day of Surgery Patient Examined: Yes Patient H&P Reviewed: Yes Patient is NPO: Yes Beta Blockers: Yes (given in pre op)
--- NOTE | 2016-09-16 13:46 | Anesthesia Consultation ---
Anesthesia Consult and Med Hx Date of service: 09/16/16 - Airway Anesthetic Teeth Evaluation: Poor ROM Head & Neck: Adequate Mental/Hyoid Distance: Adequate Mallampati Class: Class II Intubation Access Assessment: Probably Good - Pulmonary Exam CTA: Yes - Cardiac Exam Cardiac Exam: RRR - Pre-Operative Health Status ASA Pre-Surgery Classification: ASA3 Proposed Anesthetic Plan: General - Pulmonary Hx Asthma: No COPD: No Hx Pneumonia: No - Cardiovascular System Hx Hypertension: Yes - Central Nervous System Hx Neuromuscular Disorder: Yes (left hemiparesis) CVA: Yes - Endocrine Hx Renal Disease: Yes Hx End Stage Renal Disease: Yes
[2016-09-16] MEDS ORDERED: ANCEF/STERILE WATER 2 GM/20 ML IV NR (14:00)
[2016-09-16] MEDS ORDERED: HEPARIN 10,000 UNITS/10 ML IV ONE (14:32)
[2016-09-16] MEDS ORDERED: NACL 0.9% 250ML IV ONE (14:32)
--- NOTE | 2016-09-16 15:09 | Operative Report ---
Operative Report Operative Report: Date of procedure: 09/16/2016 Pre-operative diagnosis: End-Stage Renal Disease Post-operative diagnosis: End-Stage Renal Disease Procedure(s): Creation of Left Brachial Artery to Cephalic Vein Arteriovenous Fistula Surgeon: Manfred Kumar MD Bakery Machine Mechanic: None Anesthesia: Gen. endotracheal anesthesia EBL: Minimal Counts: Correct Complications: None Condition: Stable Findings: Successful creation of left brachiocephalic AV fistula with excellent thrill at the completion of the case. Specimen: None Indications: The patient is a 46-year-old male with a history of end-stage renal disease currently on hemodialysis through a right internal jugular permacath. He is in need of long-term access and his vein sizing demonstrated he had an adequate vein for creation of AV fistula. He was given the risk, benefits, and alternative procedures and consented to the procedure. Description of Procedure: The patient was brought to the operating room and laid in supine position after general endotracheal anesthesia was administered the patient was prepped and draped in normal sterile fashion. After anesthetizing the skin a transverse incision was created just below the antecubital crease. Dissection was carried down to the the cephalic vein using sharp dissection. The vein was dissected out both proximally and distally and suture ligated and divided distally. I then ran a 3 Tyrell proximally in the vein, to ensure patency of the vein. Then flushed the vein with heparinized saline and flow was controlled with a bulldog clamp. I then dissected out the brachial artery through this incision circumferentially both proximal and distal and controlled the artery with vessel loops. I then placed the vessel loops on tension controlling the flow through the artery and created an arteriotomy using an 11 blade and De La Vega scissors. I created an end to side anastomosis between the cephalic vein and brachial artery using a 6-0 Prolene in running fashion. Prior to completing the anastomosis I flushed the artery both proximally and distally and then advanced a 3 Tyrell proximally to break the spasm in the artery. I then completed the anastomosis and removed all vessel loops allowing flow into the fistula which had an excellent thrill. I achieved hemostasis with a combination of direct pressure and electrocautery. Once hemostasis was achieved I anesthetized the wound with Marcaine. I then closed the wound in 2 layers and 3-0 Vicryl in a running fashion to close the deep dermal layer and 4- 0 Monocryl in a running fashion in the subcuticular layer. I dressed the wound with Surgicel. The patient tolerated the procedure well, all sponge needle and instrument counts were correct. The patient was taken to recovery in stable condition.
--- NOTE | 2016-09-16 16:15 | Post Anesthesia Evaluation ---
- Post Anesthesia Evaluation Patient Participated: Yes Airway Patent: Yes Stable Respiratory Function: Yes Nausea/Vomiting: No Temp > 96.8F: Yes Pain Manageable: Yes Adequeate Hydration: Yes Anesthesia Complications: No Block Receding Appropriately: Not Applicable Patient on Ventilator: No Other Comments: lungs clear /htn txed/ O2 sat ok on room air
--- NOTE | 2016-09-17 07:27 | Progress Note ---
Assessment and Plan - Patient Problems (1) End stage renal disease on dialysis Current Visit: Yes Status: Chronic Plan to address problem: Continue hemodialysis three times a week. Await outpatient hemodialysis setup. (2) Uncontrolled hypertension Current Visit: Yes Status: Chronic Plan to address problem: On full dose of Amlodipine, Losartan and Metoprolol. BP is better. (3) Anemia associated with chronic renal failure Current Visit: Yes Status: Chronic Plan to address problem: Epogen. (4) CVA, old, hemiparesis Current Visit: Yes Status: Chronic Subjective Date of service: 09/17/16 Interval history: Patient was seen and examined at the bedside. No new complaint. Objective - Vital Signs Vital signs: Vital Signs - 12hr 09/16/16 09/16/16 09/17/16 22:00 22:20 00:00 Temperature 98.8 F Pulse Rate 99 H Pulse Rate [ 78 Left Radial] Pulse Rate [ 108 H Right Radial] Respiratory 18 20 Rate Blood Pressure 132/78 Blood Pressure 151/88 [Right Arm] O2 Sat by Pulse 97 Oximetry - General Appearance General appearance: well-developed, well-nourished, appears stated age, other ( no distress) EENT: ATNC, hearing intact Neck: no JVD, supple Respiratory: Present: Clear to Ascultation Cardiology: regular, S1S2, no murmurs Gastrointestinal: normoactive bowel sounds, no tenderness, no distended Integumentary: no rash Neurologic: no asterixis, aphasic (motor), hemiplegic (left sided) Musculoskeletal: other (left arm AVF with good thrill) Psychiatric: cooperative - Lab 09/15/16 05:23 09/15/16 05:23 Most recent lab results Calcium 10.0 mg/dL (8.4-10.2) 09/15/16 05:23
[2016-09-17] MEDS ORDERED: NACL 0.9% 100 ML IV PRN (07:31)
[2016-09-17] MEDS: LOPRESSOR PO SCH ×2 (09:31→21:20)
[2016-09-17] MEDS: COZAAR PO SCH ×2 (09:31→16:06)
[2016-09-17] MEDS: NORVASC PO SCH (09:31)
[2016-09-17] MEDS: HEPARIN SUB-Q SCH ×2 (09:31→21:20)
--- NOTE | 2016-09-17 10:02 | Discharge Summary ---
Providers - Providers Date of Admission: 09/12/16 08:09 Date of discharge: 09/18/16 Attending physician: AKILA MOSER 09/12/16 09:17 Occupational Therapy Evaluate and Treat [CONS] Routine Comment: Reason For Exam: LEFT SIDED WEAKNESS, PRIOR STROKE Physical Therapy Evaluation and Treat [CONS] Routine Comment: Reason For Exam: LEFT HEMIPLEGIA, PRIOR STROKE 09/12/16 13:28 Consult to Case Management [CONS] Routine Services Needed at Discharge: Surgical Garment Fitter Notified:: copy given to cm Additional Physician Instructions: dialysis setup 09/13/16 11:18 Consult to Physician [CONS] Routine Consulting Provider: HÉCTOR ORTEZ Reason For Exam: Placement of AVF. Place consult to:: DR. MILLER Notified:: DR. MLILER Phone number called:: INHOUSE Was contact made?: Yes If yes, spoke with:: DR. MILLER Time called:: 12:40 Comment:: PIOTR NOTIFIED Primary care physician: MOTORCYCLE RIDING INSTRUCTOR Hospitalization Reason for admission: HD Condition: Stable Hospital course: This patient is a 46-year-old -Turkmen male that is admitted via the emergency room on 09/12/2016 with end-stage renal disease on hemodialysis. The patient recently moved from [place] to [place] to be closer to his family. He has been unable to establish an outpatient hemodialysis clinic. The patient was using a right internal jugular vein permacath for hemodialysis. This was placed while in [place], [place]. A vascular surgery consult was obtained to evaluate for long-term hemodialysis access. Vascular surgery created a left brachial artery to the cephalic vein arteriovenous fistula. Patient underwent hemodialysis without difficulty. Case management to arrange for outpatient hemodialysis at discharge. Patient is felt to have received maximal hospital benefit of discharge. Dedicated discharge time 31 minutes. Disposition: DISCHARGED TO HOME OR SELFCARE Time spent for discharge: 31 - Discharge Diagnoses (1) Anemia associated with chronic renal failure Status: Chronic (2) CVA, old, hemiparesis Status: Chronic (3) End stage renal disease on dialysis Status: Chronic (4) Uncontrolled hypertension Status: Chronic Core Measure Documentation - Palliative Care Palliative Care/ Comfort Measures: Not Applicable - Core Measures Any of the following diagnoses?: none Exam - Constitutional Vitals: Temp Pulse Resp BP Pulse Ox 99.7 F H 81 20 147/78 97 09/17/16 08:00 09/17/16 08:00 09/17/16 08:00 09/17/16 08:00 09/17/16 08:00 General appearance: Present: no acute distress, well-nourished - EENT Eyes: Present: PERRL ENT: hearing intact, clear oral mucosa - Neck Neck: Present: supple, normal ROM - Respiratory Respiratory effort: normal Respiratory: bilateral: CTA - Cardiovascular Heart Sounds: Present: S1 & S2. Absent: rub, click - Extremities Extremities: pulses symmetrical, No edema Peripheral Pulses: within normal limits - Abdominal General gastrointestinal: Present: soft, non-tender, non-distended, normal bowel sounds Male genitourinary: Present: normal - Integumentary Integumentary: Present: clear, warm, dry - Musculoskeletal Musculoskeletal: gait normal, strength equal bilaterally - Psychiatric Psychiatric: appropriate mood/affect, intact judgment & insight - Neurologic Neurologic: CNII-XII intact, moves all extremities Plan Activity: no restrictions Weight Bearing Status: Full Weight Bearing Diet: renal Follow up with: PRIMARY CARE, [Primary Care Provider] - 3-5 Days Prescriptions: amLODIPine [Norvasc] 10 mg PO DAILY #30 tablet Losartan [Cozaar] 100 mg PO QDAY #30 tablet Metoprolol [Lopressor TAB] 100 mg PO BID #60 tablet
--- NOTE | 2016-09-17 10:07 | Progress Note ---
Assessment and Plan Assessment and plan: ESRD. Continue hemodialysis per nephrology. Case management to arrange for outpatient hemodialysis. AV fistula placed on 09/16/16. hx CVA with left hemiplegia. Continue PT/OT. Supportive care. Accelerated hypertension. Continue antihypertensive medications. Continue losartan, metoprolol and Norvasc. Anemia of chronic kidney disease. Continue to follow H&H and transfuse as needed. DVT prophylaxis. Continue Lovenox. - Patient Problems (1) Anemia associated with chronic renal failure Current Visit: Yes Status: Chronic (2) CVA, old, hemiparesis Current Visit: Yes Status: Chronic (3) End stage renal disease on dialysis Current Visit: Yes Status: Chronic (4) Uncontrolled hypertension Current Visit: Yes Status: Chronic History Interval history: No new issues overnight. Hospitalist Physical - Constitutional Vitals: Temp Pulse Resp BP Pulse Ox 99.7 F H 81 20 147/78 97 09/17/16 08:00 09/17/16 08:00 09/17/16 08:00 09/17/16 08:00 09/17/16 08:00 General appearance: Present: no acute distress, well-nourished - EENT Eyes: Present: PERRL, EOM intact ENT: hearing intact, clear oral mucosa, dentition normal - Neck Neck: Present: supple, normal ROM - Respiratory Respiratory effort: normal Respiratory: bilateral: CTA - Cardiovascular Rhythm: regular Heart Sounds: Present: S1 & S2. Absent: gallop, rub - Extremities Extremities: no ischemia, No edema, Full ROM - Abdominal General gastrointestinal: soft, non-tender, non-distended, normal bowel sounds - Integumentary Integumentary: Present: clear, warm, dry - Neurologic Neurologic: CNII-XII intact, moves all extremities Results - Labs CBC & Chem 7: 09/15/16 05:23 09/15/16 05:23 Labs: Laboratory Last Values WBC 9.6 K/mm3 (4.5-11.0) 09/15/16 05:23 RBC 4.31 M/mm3 (3.65-5.03) 09/15/16 05:23 Hgb 12.0 gm/dl (11.8-15.2) 09/15/16 05:23 Hct 34.8 % (35.5-45.6) L 09/15/16 05:23 MCV 81 fl (84-94) L 09/15/16 05:23 MCH 28 pg (28-32) 09/15/16 05:23 MCHC 35 % (32-34) H 09/15/16 05:23 RDW 13.2 % (13.2-15.2) 09/15/16 05:23 Plt Count 220 K/mm3 (140-440) 09/15/16 05:23 Lymph % (Auto) 31.4 % (13.4-35.0) 09/15/16 05:23 [place] % (Auto) 12.8 % (0.0-7.3) H 09/15/16 05:23 Eos % (Auto) 0.5 % (0.0-4.3) 09/15/16 05:23 Baso % (Auto) 1.2 % (0.0-1.8) 09/15/16 05:23 Lymph # 3.0 K/mm3 (1.2-5.4) 09/15/16 05:23 [place] # 1.2 K/mm3 (0.0-0.8) H 09/15/16 05:23 Eos # 0.0 K/mm3 (0.0-0.4) 09/15/16 05:23 Baso # 0.1 K/mm3 (0.0-0.1) 09/15/16 05:23 Seg Neutrophils % 54.1 % (40.0-70.0) 09/15/16 05:23 Seg Neutrophils # 5.2 K/mm3 (1.8-7.7) 09/15/16 05:23 PT 14.0 Sec. (12.2-14.9) 09/11/16 21:48 INR 1.09 (0.87-1.13) 09/11/16 21:48 APTT 32.3 Sec. (24.2-36.6) 09/11/16 21:48 Sodium 141 mmol/L (137-145) 09/15/16 05:23 Potassium 3.9 mmol/L (3.6-5.0) 09/15/16 05:23 Chloride 99.0 mmol/L (98-107) 09/15/16 05:23 Carbon Dioxide 24 mmol/L (22-30) 09/15/16 05:23 Anion Gap 22 mmol/L 09/15/16 05:23 BUN 32 mg/dL (9-20) H 09/15/16 05:23 Creatinine 6.7 mg/dL (0.8-1.5) H 09/15/16 05:23 Estimated GFR 11 ml/min 09/15/16 05:23 BUN/Creatinine Ratio 4.77 % 09/15/16 05:23 Glucose 111 mg/dL (75-100) H 09/15/16 05:23 Calcium 10.0 mg/dL (8.4-10.2) 09/15/16 05:23 Albumin 3.9 g/dL (3.9-5) 09/12/16 08:45 Hepatitis A IgM Ab Non-reactive (NonReactive) 09/12/16 08:45 Hep Bs Antigen Non-reactive (Negative) 09/12/16 08:45 Hep B Core IgM Ab Non-reactive (NonReactive) 09/12/16 08:45 Hepatitis C Antibody Non-reactive (NonReactive) 09/12/16 08:45
[2016-09-17] MEDS ORDERED: NACL 0.9 (PRIMING MACHINE ONLY DIALYSIS) MC ONE (10:24)
--- NOTE | 2016-09-17 10:50 | Progress Note ---
Subjective Date of service: 09/17/16 Interval history: Pt resting in bed receiving dialysis. Pain at 1. No meds needed for control . No. N/V. Not ambulatory. No anesthetic complications noted. Objective - Constitutional Vitals: Vital Signs - 12hr 09/17/16 09/17/16 09/17/16 00:00 08:00 09:25 Temperature 98.8 F 99.7 F H 98.6 F Pulse Rate 87 Pulse Rate [ 108 H 81 Right Radial] Respiratory 20 20 18 Rate Blood Pressure 149/71 Blood Pressure 151/88 147/78 [Right Arm] O2 Sat by Pulse 97 97 Oximetry 09/17/16 09/17/16 09/17/16 09:35 09:45 10:00 Temperature Pulse Rate 86 83 87 Pulse Rate [ Right Radial] Respiratory Rate Blood Pressure 146/75 151/67 146/76 Blood Pressure [Right Arm] O2 Sat by Pulse Oximetry - Labs CBC & Chem 7: 09/15/16 05:23 09/15/16 05:23
--- NOTE | 2016-09-17 15:29 | Event Note ---
Date: 09/17/16 Patient's left arm incision is clean dry and intact without any evidence of hematoma. The fistula has an excellent thrill and he has a palpable radial pulse. Patient should've follow up as an outpatient in 2 weeks for postoperative visit.
[2016-09-17] MEDS: HEPARIN IV PRN (15:50)
--- NOTE | 2016-09-18 07:35 | Progress Note ---
Assessment and Plan - Patient Problems (1) End stage renal disease on dialysis Current Visit: Yes Status: Chronic Plan to address problem: Continue hemodialysis three times a week. Await outpatient hemodialysis setup. (2) Uncontrolled hypertension Current Visit: Yes Status: Chronic Plan to address problem: BP is better. (3) Anemia associated with chronic renal failure Current Visit: Yes Status: Chronic Plan to address problem: Epogen. (4) CVA, old, hemiparesis Current Visit: Yes Status: Chronic Subjective Date of service: 09/18/16 Interval history: Patient was seen and examined at the bedside. No new complaint. Objective - Vital Signs Vital signs: Vital Signs - 12hr 09/17/16 09/17/16 09/17/16 21:18 21:20 22:00 Temperature Pulse Rate 104 H Pulse Rate [ 76 Left Radial] Pulse Rate [ 104 H Right Radial] Respiratory 18 Rate Blood Pressure 136/77 Blood Pressure 136/77 [Right Arm] O2 Sat by Pulse Oximetry 09/18/16 00:00 Temperature 99.2 F Pulse Rate Pulse Rate [ Left Radial] Pulse Rate [ 76 Right Radial] Respiratory 18 Rate Blood Pressure Blood Pressure 129/72 [Right Arm] O2 Sat by Pulse 98 Oximetry - General Appearance General appearance: well-developed, well-nourished, appears stated age, other ( no distress, right IJ tunnel catheter) EENT: ATNC Neck: supple Respiratory: Present: Clear to Ascultation Cardiology: regular, S1S2, no murmurs Gastrointestinal: normoactive bowel sounds Integumentary: no rash Neurologic: hemiplegic (left sided), aphasia Musculoskeletal: other (left arm AVF) Psychiatric: cooperative - Lab 09/15/16 05:23 09/15/16 05:23 Most recent lab results Calcium 10.0 mg/dL (8.4-10.2) 09/15/16 05:23
--- NOTE | 2016-09-18 09:20 | Progress Note ---
Assessment and Plan Assessment and plan: ESRD. Continue hemodialysis per nephrology. Case management to arrange for outpatient hemodialysis. AV fistula placed on 09/16/16. hx CVA with left hemiplegia. Continue PT/OT. Supportive care. Accelerated hypertension. Continue antihypertensive medications. Continue losartan, metoprolol and Norvasc. Anemia of chronic kidney disease. Continue to follow H&H and transfuse as needed. DVT prophylaxis. Continue Lovenox. - Patient Problems (1) Anemia associated with chronic renal failure Current Visit: Yes Status: Chronic (2) CVA, old, hemiparesis Current Visit: Yes Status: Chronic (3) End stage renal disease on dialysis Current Visit: Yes Status: Chronic (4) Uncontrolled hypertension Current Visit: Yes Status: Chronic History Interval history: No new issues overnight. Hospitalist Physical - Constitutional Vitals: Temp Pulse Resp BP Pulse Ox 99.2 F 76 18 129/72 98 09/18/16 00:00 09/18/16 00:00 09/18/16 00:00 09/18/16 00:00 09/18/16 00:00 General appearance: Present: no acute distress, well-nourished - EENT Eyes: Present: PERRL, EOM intact ENT: hearing intact, clear oral mucosa, dentition normal - Neck Neck: Present: supple, normal ROM - Respiratory Respiratory effort: normal Respiratory: bilateral: CTA - Cardiovascular Rhythm: regular Heart Sounds: Present: S1 & S2. Absent: gallop, rub - Extremities Extremities: no ischemia, No edema, Full ROM - Abdominal General gastrointestinal: soft, non-tender, non-distended, normal bowel sounds - Integumentary Integumentary: Present: clear, warm, dry - Neurologic Neurologic: CNII-XII intact, moves all extremities Results - Labs CBC & Chem 7: 09/15/16 05:23 09/15/16 05:23 Labs: Laboratory Last Values WBC 9.6 K/mm3 (4.5-11.0) 09/15/16 05:23 RBC 4.31 M/mm3 (3.65-5.03) 09/15/16 05:23 Hgb 12.0 gm/dl (11.8-15.2) 09/15/16 05:23 Hct 34.8 % (35.5-45.6) L 09/15/16 05:23 MCV 81 fl (84-94) L 09/15/16 05:23 MCH 28 pg (28-32) 09/15/16 05:23 MCHC 35 % (32-34) H 09/15/16 05:23 RDW 13.2 % (13.2-15.2) 09/15/16 05:23 Plt Count 220 K/mm3 (140-440) 09/15/16 05:23 Lymph % (Auto) 31.4 % (13.4-35.0) 09/15/16 05:23 [place] % (Auto) 12.8 % (0.0-7.3) H 09/15/16 05:23 Eos % (Auto) 0.5 % (0.0-4.3) 09/15/16 05:23 Baso % (Auto) 1.2 % (0.0-1.8) 09/15/16 05:23 Lymph # 3.0 K/mm3 (1.2-5.4) 09/15/16 05:23 [place] # 1.2 K/mm3 (0.0-0.8) H 09/15/16 05:23 Eos # 0.0 K/mm3 (0.0-0.4) 09/15/16 05:23 Baso # 0.1 K/mm3 (0.0-0.1) 09/15/16 05:23 Seg Neutrophils % 54.1 % (40.0-70.0) 09/15/16 05:23 Seg Neutrophils # 5.2 K/mm3 (1.8-7.7) 09/15/16 05:23 PT 14.0 Sec. (12.2-14.9) 09/11/16 21:48 INR 1.09 (0.87-1.13) 09/11/16 21:48 APTT 32.3 Sec. (24.2-36.6) 09/11/16 21:48 Sodium 141 mmol/L (137-145) 09/15/16 05:23 Potassium 3.9 mmol/L (3.6-5.0) 09/15/16 05:23 Chloride 99.0 mmol/L (98-107) 09/15/16 05:23 Carbon Dioxide 24 mmol/L (22-30) 09/15/16 05:23 Anion Gap 22 mmol/L 05/14/17 05:23 BUN 32 mg/dL (9-20) H 09/15/16 05:23 Creatinine 6.7 mg/dL (0.8-1.5) H 09/15/16 05:23 Estimated GFR 11 ml/min 09/15/16 05:23 BUN/Creatinine Ratio 4.77 % 09/15/16 05:23 Glucose 111 mg/dL (75-100) H 09/15/16 05:23 Calcium 10.0 mg/dL (8.4-10.2) 09/15/16 05:23 Albumin 3.9 g/dL (3.9-5) 09/12/16 08:45 Hepatitis A IgM Ab Non-reactive (NonReactive) 09/12/16 08:45 Hep Bs Antigen Non-reactive (Negative) 09/12/16 08:45 Hep B Core IgM Ab Non-reactive (NonReactive) 09/12/16 08:45 Hepatitis C Antibody Non-reactive (NonReactive) 09/12/16 08:45
[2016-09-18] MEDS: HEPARIN SUB-Q SCH (10:43)
[2016-09-18] MEDS: COZAAR PO SCH (10:43)
[2016-09-18] MEDS: LOPRESSOR PO SCH (10:43)
[2016-09-18] MEDS: NORVASC PO SCH (10:43)
[2016-09-19] MEDS: HEPARIN SUB-Q SCH ×3 (01:07→22:20)
[2016-09-19] MEDS: LOPRESSOR PO SCH ×3 (01:18→22:19)
--- NOTE | 2016-09-19 09:47 | Progress Note ---
Assessment and Plan - Patient Problems (1) End stage renal disease on dialysis Current Visit: Yes Status: Chronic Plan to address problem: Continue hemodialysis three times a week. Await outpatient hemodialysis setup. (2) Uncontrolled hypertension Current Visit: Yes Status: Chronic Plan to address problem: BP is better. (3) Anemia associated with chronic renal failure Current Visit: Yes Status: Chronic Plan to address problem: Epogen. (4) CVA, old, hemiparesis Current Visit: Yes Status: Chronic Subjective Date of service: 09/19/16 Interval history: Patient was seen and examined at the bedside. No new complaint. Objective - Vital Signs Vital signs: Vital Signs - 12hr 09/18/16 09/18/16 09/19/16 22:00 23:41 01:18 Temperature 98.5 F Pulse Rate 88 Pulse Rate [ 82 Left Radial] Pulse Rate [ 85 Right Radial] Respiratory 20 Rate Blood Pressure 160/90 Blood Pressure 163/93 [Right Arm] O2 Sat by Pulse 100 Oximetry 09/19/16 08:00 Temperature 98.3 F Pulse Rate Pulse Rate [ Left Radial] Pulse Rate [ 72 Right Radial] Respiratory 20 Rate Blood Pressure Blood Pressure 160/78 [Right Arm] O2 Sat by Pulse 98 Oximetry - General Appearance General appearance: well-developed, well-nourished, appears stated age, other ( no distress) EENT: ATNC Neck: no JVD, supple Respiratory: Present: Clear to Ascultation Cardiology: regular, S1S2, no murmurs Gastrointestinal: normoactive bowel sounds, no tenderness, no distended Integumentary: no rash Neurologic: aphasic, hemiplegic, other (left eye blindness) Musculoskeletal: other (no edema, left arm AVF) Psychiatric: cooperative - Lab 09/15/16 05:23 09/15/16 05:23 Most recent lab results Calcium 10.0 mg/dL (8.4-10.2) 09/15/16 05:23
[2016-09-19] MEDS: NORVASC PO SCH (10:00)
[2016-09-19] MEDS: COZAAR PO SCH (10:00)
[2016-09-19] MEDS ORDERED: NACL 0.9 (PRIMING MACHINE ONLY DIALYSIS) MC ONE (10:33)
--- NOTE | 2016-09-19 10:55 | Progress Note ---
Assessment and Plan Assessment and plan: ESRD. Continue hemodialysis per nephrology. Case management to arrange for outpatient hemodialysis. AV fistula placed on 09/16/16. hx CVA with left hemiplegia. Continue PT/OT. Supportive care. Accelerated hypertension. Continue antihypertensive medications. Continue losartan, metoprolol and Norvasc. Anemia of chronic kidney disease. Continue to follow H&H and transfuse as needed. DVT prophylaxis. Continue Lovenox. Disposition. Discharge is pending outpatient hemodialysis arrangements. - Patient Problems (1) Anemia associated with chronic renal failure Current Visit: Yes Status: Chronic (2) CVA, old, hemiparesis Current Visit: Yes Status: Chronic (3) End stage renal disease on dialysis Current Visit: Yes Status: Chronic (4) Uncontrolled hypertension Current Visit: Yes Status: Chronic History Interval history: No new issues overnight. Hospitalist Physical - Constitutional Vitals: Temp Pulse Resp BP Pulse Ox 98.7 F 84 16 156/100 98 09/19/16 10:10 09/19/16 10:15 09/19/16 10:10 09/19/16 10:15 09/19/16 08:00 General appearance: Present: no acute distress, well-nourished - EENT Eyes: Present: PERRL, EOM intact ENT: hearing intact, clear oral mucosa, dentition normal - Neck Neck: Present: supple, normal ROM - Respiratory Respiratory effort: normal Respiratory: bilateral: CTA - Cardiovascular Rhythm: regular Heart Sounds: Present: S1 & S2. Absent: gallop, rub - Extremities Extremities: no ischemia, No edema, Full ROM - Abdominal General gastrointestinal: soft, non-tender, non-distended, normal bowel sounds - Integumentary Integumentary: Present: clear, warm, dry - Neurologic Neurologic: CNII-XII intact, moves all extremities Results - Labs CBC & Chem 7: 09/15/16 05:23 09/15/16 05:23 Labs: Laboratory Last Values WBC 9.6 K/mm3 (4.5-11.0) 09/15/16 05:23 RBC 4.31 M/mm3 (3.65-5.03) 09/15/16 05:23 Hgb 12.0 gm/dl (11.8-15.2) 09/15/16 05:23 Hct 34.8 % (35.5-45.6) L 09/15/16 05:23 MCV 81 fl (84-94) L 09/15/16 05:23 MCH 28 pg (28-32) 09/15/16 05:23 MCHC 35 % (32-34) H 09/15/16 05:23 RDW 13.2 % (13.2-15.2) 09/15/16 05:23 Plt Count 220 K/mm3 (140-440) 09/15/16 05:23 Lymph % (Auto) 31.4 % (13.4-35.0) 09/15/16 05:23 [place] % (Auto) 12.8 % (0.0-7.3) H 09/15/16 05:23 Eos % (Auto) 0.5 % (0.0-4.3) 09/15/16 05:23 Baso % (Auto) 1.2 % (0.0-1.8) 09/15/16 05:23 Lymph # 3.0 K/mm3 (1.2-5.4) 09/15/16 05:23 [place] # 1.2 K/mm3 (0.0-0.8) H 09/15/16 05:23 Eos # 0.0 K/mm3 (0.0-0.4) 09/15/16 05:23 Baso # 0.1 K/mm3 (0.0-0.1) 09/15/16 05:23 Seg Neutrophils % 54.1 % (40.0-70.0) 09/15/16 05:23 Seg Neutrophils # 5.2 K/mm3 (1.8-7.7) 09/15/16 05:23 PT 14.0 Sec. (12.2-14.9) 09/11/16 21:48 INR 1.09 (0.87-1.13) 09/11/16 21:48 APTT 32.3 Sec. (24.2-36.6) 09/11/16 21:48 Sodium 141 mmol/L (137-145) 09/15/16 05:23 Potassium 3.9 mmol/L (3.6-5.0) 09/15/16 05:23 Chloride 99.0 mmol/L (98-107) 09/15/16 05:23 Carbon Dioxide 24 mmol/L (22-30) 09/15/16 05:23 Anion Gap 22 mmol/L 09/15/16 05:23 BUN 32 mg/dL (9-20) H 09/15/16 05:23 Creatinine 6.7 mg/dL (0.8-1.5) H 09/15/16 05:23 Estimated GFR 11 ml/min 09/15/16 05:23 BUN/Creatinine Ratio 4.77 % 09/15/16 05:23 Glucose 111 mg/dL (75-100) H 09/15/16 05:23 Calcium 10.0 mg/dL (8.4-10.2) 09/15/16 05:23 Albumin 3.9 g/dL (3.9-5) 09/12/16 08:45 Hepatitis A IgM Ab Non-reactive (NonReactive) 09/12/16 08:45 Hep Bs Antigen Non-reactive (Negative) 09/12/16 08:45 Hep B Core IgM Ab Non-reactive (NonReactive) 09/12/16 08:45 Hepatitis C Antibody Non-reactive (NonReactive) 09/12/16 08:45
--- NOTE | 2016-09-19 10:56 | Event Note ---
Date: 09/19/16 Please refer to discharge summary from 09/18/16. I discussed the disposition and discharge plan will case management.
[2016-09-19] MEDS: HEPARIN IV PRN (13:41)
[2016-09-19] MEDS: APRESOLINE IV PRN (20:31)
--- NOTE | 2016-09-20 08:42 | Discharge Summary ---
Providers - Providers Date of Admission: 09/12/16 08:09 Date of discharge: 09/20/16 Attending physician: KOKO BARBOSA 09/12/16 09:17 Occupational Therapy Evaluate and Treat [CONS] Routine Comment: Reason For Exam: LEFT SIDED WEAKNESS, PRIOR STROKE Physical Therapy Evaluation and Treat [CONS] Routine Comment: Reason For Exam: LEFT HEMIPLEGIA, PRIOR STROKE 09/12/16 13:28 Consult to Case Management [CONS] Routine Services Needed at Discharge: Summer Child Caregiver Notified:: copy given to cm Additional Physician Instructions: dialysis setup 09/13/16 11:18 Consult to Physician [CONS] Routine Consulting Provider: HÉCTOR ORTEZ Reason For Exam: Placement of AVF. Place consult to:: DR. MILLER Notified:: DR. MILLER Phone number called:: INHOUSE Was contact made?: Yes If yes, spoke with:: DR. MILLER Time called:: 12:40 Comment:: PIOTR NOTIFIED Primary care physician: SAMPLE CLERK Hospitalization Reason for admission: ESRD Condition: Stable Hospital course: refer to the the discharge summary of Dr. Arreaga dated 09/17 this is an update in the orders to discharge the patient per nursing staff request I have also added statin and ASA 81 mg (hx of previous stroke) Disposition: DISCHARGED TO HOME OR SELFCARE Core Measure Documentation - Palliative Care Palliative Care/ Comfort Measures: Not Applicable - Core Measures Any of the following diagnoses?: none - Stroke Discharge Requirements Statin for LDL = or >70 mg/dl on DC: Yes Anticoag for atrial fib/atrial flutter: Not Applicable Reason for no anticoag for AF/F on DC: Not Indicated Antithrombotic for ischemic stroke: Yes Reason for no antithrombotic on DC: Not Indicated Exam - Constitutional Vitals: Temp Pulse Resp BP Pulse Ox 99.6 F 88 16 135/92 98 09/20/16 08:34 09/20/16 08:34 09/20/16 08:34 09/20/16 08:34 09/20/16 08:34 General appearance: Present: no acute distress - EENT Eyes: Present: PERRL, EOM intact ENT: hearing intact, clear oral mucosa - Neck Neck: Present: supple, normal ROM - Respiratory Respiratory effort: normal Respiratory: bilateral: CTA - Cardiovascular Rhythm: regular Heart Sounds: Present: S1 & S2 - Extremities Extremities: No edema - Abdominal General gastrointestinal: Present: soft, non-tender Plan Activity: advance as tolerated Diet: low fat, low cholesterol, low salt, renal Special Instructions: restrict fluid intake to (1200 cc/day) Additional Instructions: f/u with nephrology and dyalysis per their instructions Follow up with: PRIMARY CARE, [Primary Care Provider] - 3-5 Days Prescriptions: amLODIPine [Norvasc] 10 mg PO DAILY #30 tablet Losartan [Cozaar] 100 mg PO QDAY #30 tablet Metoprolol [Lopressor TAB] 100 mg PO BID #60 tablet Simvastatin [Zocor TAB] 40 mg PO QHS #30 tablet
[2016-09-20] MEDS: COZAAR PO SCH (09:26)
[2016-09-20] MEDS: NORVASC PO SCH (09:26)
[2016-09-20 09:27] VITALS: BP 140/80
[2016-09-20] MEDS: HEPARIN SUB-Q SCH (09:27)
[2016-09-20] MEDS: LOPRESSOR PO SCH (09:27)
--- NOTE | 2016-09-20 10:16 | Progress Note ---
Assessment and Plan - Patient Problems (1) End stage renal disease on dialysis Current Visit: Yes Status: Chronic (2) Uncontrolled hypertension Current Visit: Yes Status: Chronic (3) Anemia associated with chronic renal failure Current Visit: Yes Status: Chronic (4) CVA, old, hemiparesis Current Visit: Yes Status: Chronic Subjective Date of service: 09/20/16 Objective - Vital Signs Vital signs: Vital Signs - 12hr 09/19/16 09/19/16 09/20/16 22:19 22:55 08:34 Temperature 97.9 F 99.6 F Pulse Rate 88 Pulse Rate [ 92 H 88 Right Radial] Respiratory 18 16 Rate Blood Pressure 158/90 Blood Pressure 171/94 135/92 [Right Arm] O2 Sat by Pulse 97 98 Oximetry 09/20/16 09:26 Temperature Pulse Rate 88 Pulse Rate [ Right Radial] Respiratory Rate Blood Pressure 140/80 Blood Pressure [Right Arm] O2 Sat by Pulse Oximetry - Lab 09/15/16 05:23 09/15/16 05:23 Most recent lab results Calcium 10.0 mg/dL (8.4-10.2) 09/15/16 05:23
== END 2016-09-20 09:30 | disposition home or self-care (01) | DRG 673 ==
LOC: ED 20:03 → 3A 09-12 08:09
PROVIDERS: ADMIT Internal Medicine; ATTEND Internal Medicine
PROC: 03180ZD Bypass Left Brachial Artery to Upper Arm Vein, Open Approach (ICD-10-PCS; principal; 2016-09-16)
PROC: 5A1D60Z (ICD-10-PCS; 2016-09-19)
DX: I12.0 Hypertensive chronic kidney disease with stage 5 chronic kidney disease or end stage renal disease (principal); N18.6 End stage renal disease; I69.354 Hemiplegia and hemiparesis following cerebral infarction affecting left non-dominant side; I16.0 Hypertensive urgency; F17.210 Nicotine dependence, cigarettes, uncomplicated; D63.1 Anemia in chronic kidney disease; Z99.2 Dependence on renal dialysis
CPT/HCPCS: 36415; 71010; 80048; 80074; 82040; 85025; 85610; 85730; 93005; 93010; 96374; C1757; J0360; J0690; J0885; J1644; J2370; J2405; J2704; J3010; J7030; J7050